=== PATIENT | female | born 1990 | race Caucasian/White ===

== ENCOUNTER 2021-02-11 01:46 | Emergency (ER) | payer MEDICAID ==
[~2021-02-11] VITALS: Ht 152.4 cm; Wt 90.0 kg
[2021-02-11 03:15] VITALS: BP 129/79
[2021-02-11] MEDS ORDERED: DEXTL PO (03:20)
[2021-02-11] MEDS ORDERED: NAPR-681 PO (03:20)
== END 2021-02-11 03:30 | disposition home or self-care (01) ==
LOC: ER 01:46
DX: J06.9 Acute upper respiratory infection, unspecified (principal); Z20.822 Contact with and (suspected) exposure to COVID-19; Z98.890 Other specified postprocedural states
CPT/HCPCS: 87426; 99283